=== PATIENT | female | born 1930 | race Caucasian/White ===

== ENCOUNTER → 2016-11-01 | Outpatient (CLI) | payer MEDICARE, MEDICAID ==
--- NOTE | 2016-11-07 00:38 | CT ---
EXAM DESCRIPTION: Chest w/o Contrast CLINICAL HISTORY: PNEUMONIA COMPARISON: July 03, 2016 TECHNIQUE: Non contrast multidetector CT imaging of the chest. Multiplanar reconstructions were provided. FINDINGS: Lungs and large airways: The lobular mass seen within the right upper lobe is again noted. On today's exam and measures 4.2 x 2.3 cm. On the previous exam it was similar in size. The left upper lobe pneumonia has essentially resolved with only minimal groundglass noted. Small nodule seen within the periphery of the left upper lobe. Pleura: Pleural disease noted. A few calcified pleural plaques are seen. 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 Heart and pericardium: Cardiomegaly. Small pericardial effusion. Coronary artery disease noted. 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 The trachea is midline and unremarkable. No lymphadenopathy noted. Cholelithiasis. IMPRESSION: Near complete resolution of the left upper lobe pneumonia when compared to prior. There is a lobular mass without air bronchograms seen within the right upper lobe. A biopsy is suggested as a malignancy cannot be excluded. Tiny pulmonary nodules noted within the periphery of the left upper lobe are stable. Large left thyroid lobe nodule which is better visualized on the prior study. This measures at least 2.7 cm in diameter. Ultrasound is suggested. Cholelithiasis noted. 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 It measures 3.8 cm in diameter. Electronically signed by: Jaya Wolf MD 11/02/2016 2:03 PM PRACTICING DERMATOLOGIST
== END | disposition home or self-care (01) ==
LOC: CT 14:02
PROVIDERS: ATTEND Internal Medicine
DX: J18.9 Pneumonia, unspecified organism (principal)

== ENCOUNTER → 2016-12-27 | Outpatient (CLI) | payer MEDICARE, MEDICAID ==
--- NOTE | 2016-12-28 11:37 | RAD ---
EXAM DESCRIPTION: Hip,Left 2 Views CLINICAL HISTORY: 86 years Female, HIP PAIN IMPRESSION: Two views of the left hip reveals osteophyte formation about the humeral head. The joint space of left hip is unremarkable. No cortical irregularity to suggest a fracture on today's study. Electronically signed by: Jaya Wolf MD 12/28/2016 11:36 AM CDT
== END ==
LOC: RAD 13:25
PROVIDERS: ATTEND Emergency Medicine
DX: M25.552 Pain in left hip (principal)

== ENCOUNTER → 2017-11-08 | Outpatient (CLI) | payer MEDICARE, MEDICAID | LOC: LAB.O 15:57 | PROVIDERS: ATTEND Otolaryngology | DX: E89.0 Postprocedural hypothyroidism (principal) ==

== ENCOUNTER → 2018-03-01 | Outpatient (CLI) | payer MEDICARE, MEDICAID | LOC: LAB.O 18:58 | PROVIDERS: ATTEND Internal Medicine Medical Oncology | DX: C34.11 Malignant neoplasm of upper lobe, right bronchus or lung (principal) ==